=== PATIENT | female | born 1930 | race Caucasian/White ===

== ENCOUNTER 2017-06-18 07:20 | Day surgery (SDC) | payer MEDICARE, BC ==
[2017-06-18] MEDS ORDERED: ACETAZOLAMIDE 250 MG PO ONE (07:36)
[2017-06-18] MEDS: PROPARACAINE HCL 0.5% OPHTHALMIC SOL ONE ×3 (07:45→09:05)
[2017-06-18] MEDS: PHENYLEPHRINE HCL 10% OPHTHAL SOL ONE ×2 (07:45→07:59)
[2017-06-18] MEDS: CYCLOPENTOLATE 1% SOL ONE ×2 (07:46→08:00)
[2017-06-18] MEDS: KETOROLAC 0.5% OPTH 60 DROP SOL ONE ×2 (07:46→08:00)
[2017-06-18] MEDS ORDERED: LIDOCAINE HCL 1% MPF SOL ONE (08:58)
[2017-06-18] MEDS ORDERED: POVIDONE IODINE 5% SOL ONE (08:58)
[2017-06-18] MEDS ORDERED: BSS 500 ML 500 ML IR ONE (08:58)
[2017-06-18] MEDS ORDERED: FENTANYL 100MCG/2ML SOL ONE (09:03)
[2017-06-18] MEDS ORDERED: MIDAZOLAM 2 MG/2 ML SOL ONE (09:03)
[2017-06-18 09:32] VITALS: BP 136/75; PULSE 70; RESP 18; TEMP 97.7; O2SAT 92
== END 2017-06-18 09:50 | disposition home or self-care (01) | DRG 125 ==
LOC: SURG 07:20
PROVIDERS: ATTEND Ophthalmology
DX: H26.9 Unspecified cataract (principal)
CPT/HCPCS: J2250; J3010; A9270-GY; J2001